=== PATIENT | female | born 1960 | race Caucasian/White ===

== ENCOUNTER → 2023-04-08 00:23 | Outpatient (CLI) | payer BC, SELFPAY ==
--- NOTE | 2023-04-08 | DI.US_ITS ---
APPROVED REPORT EXAM: Stress Echocardiogram Stress Nurse: Deepa Metz RN Ordering Provider: GILBERTO LAY SMITH, Contact Number: [phone] HR: 75 bpm BP: 108/72 mmHg Rhythm: SR, multifocal PVC's Indications: Syncope, Fatigue, pain in arm, HLD Medical History Medical History: HLD, CVA Medications: Albuterol sulfate, aspirin Allergies: IV dye Cardiac Risk Factors: HLD Previous Cardiac Procedures: Loop device Pretest Chest Pain Characteristics: None Exercise History: Physically active Physical Disabilities: None Stress Test Details Test: Exercise stress testing was performed using a [place] protocol. Rest Stress HR Resting HR Supine: 75 bpm Max Heart Rate (APMHR): 157 bpm Resting HR Standin bpm Target HR (85% APMHR): 133 bpm Max HR Achieved: 138 bpm % of APMHR: 88 Recovery HR: 82 bpm HR response to stress: Normal HR response to stress BP Resting BP Supine: 108/72 mmHg Resting BP Standin/62 mmHg Max BP: 144/80 mmHg Recovery BP: 118/76 mmHg BP response to stress: Normal blood pressure response to stress. ECG Resting ECG: Sinus Rhythm Ectopy: Multifocal PVC's Stress ECG: Sinus Tachycardia ST Change: No significant ST segment changes noted Arrhythmia: Multifocal PVC's Recovery ECG: Sinus Rhythm Recovery ST Change: No significant ST segment changes noted Recovery Arrhythmia: Mutifocal PVC's Clinical Reason for Termination: Target HR Achieved Stress Symptoms: General Fatigue Exercise duration: 06 min42 sec Highest Stage Reached: Stage 3: 3.4 mph at 14% grade. Exercise capacity: 8.13 METs Angina Score: None He Treadmill Score: 6.5 Rate Pressure Product: Stress ECG Conclusion 1. Resting electrocardiogram showed poor R wave progression, several PVCs 2. Patient exercised on the Gust[place] protocol and completed a workload of 8.13 METS stopping due to fati marta 3. Normal heart rate and blood pressure response to exercise. Patient achieved 88% of predicted hear t rate for age 4. There was no electrocardiographic evidence of myocardial ischemia 5. PVCs appeared more common at rest, diminished with exercise 6. There was no echocardiographic evidence of myocardial ischemia. Ejection fraction mena from 55% t o greater than 70% with augmented contractility of all segments He Treadmill Score is 6.5 which is Low risk. Stress Test Summary STAGE Time (mins) Speed (mph) Grade (%) HR BP SYMPTOMS METS Supine 75 108/72 Standing 79 104/62 1 3 1.7 10 114 130/58 4.6 2 6 2.5 12 138 7 1 min recovery 88 144/80 General fatigue 3 min recovery 87 140/78 6 min recovery 82 130/78 9 min recovery 82 118/76 Echo Findings The Pre-Stress Echocardiogram showed normal left ventricular contractility with an estimated Ejection Fraction of about 55%. The Peak-Stress Echocardiogram showed normal left ventricular contractility with an estimated Ejectio n Fraction of about 70%. Conclusion Resting electrocardiogram showed poor R wave progression, several PVCs Patient exercised on the [place] protocol and completed a workload of 8.13 METS stopping due to fatigue Normal heart rate and blood pressure response to exercise. Patient achieved 88% of predicted heart r ate for age There was no electrocardiographic evidence of myocardial ischemia PVCs appeared more common at rest, diminished with exercise There was no echocardiographic evidence of myocardial ischemia. Ejection fraction mena from 55% to g reater than 70% with augmented contractility of all segments Plain He Treadmill Score is 6.5 which is Low risk.
== END ==
PROVIDERS: PCP Family Medicine; Visit Provider Physician Assistant Medical
DX: R55 Syncope and collapse (principal); R53.82 Chronic fatigue, unspecified
CPT/HCPCS: 93350; 93017